=== PATIENT | female | born 1965 | race Two or more races ===

== ENCOUNTER 2017-01-09 09:57 | Day surgery (SDC) | payer OTHER ==
[2017-01-09] MEDS ORDERED: ceFAZolin 2 GM/SWFI 2 GM/20 ML SYR IVP ONE (11:00)
--- NOTE | 2017-01-09 11:33 | CPEKG ---
Heart Rate: 49 RR Interval: 1224 P-R Interval: 184 QRSD Interval: 86 QT Interval: 488 QTC Interval: 441 P [place]: -11 QRS [place]: -11 T Wave [place]: 11 EKG Severity - OTHERWISE NORMAL ECG - EKG Impression: SINUS BRADYCARDIA Electronically Signed By: Bertin Arango 09-Jan-2017 15:39:56
[2017-01-09] MEDS ORDERED: LR 1,000 ML IV ONE (11:37)
[2017-01-09] MEDS ORDERED: LIDOCAINE 1% 2 ML INJ ID PRN (11:37)
--- NOTE | 2017-01-09 11:57 | PDHPUP ---
History & Physical Update H&P update statement: This history and physical update is based on an assessment of the patient which was completed after admission or registration (within 24 hours), but prior to the surgery/procedure.
[2017-01-09] MEDS ORDERED: BUPIVACAINE 0.5% 30 ML SDV ONE (12:05)
[2017-01-09] MEDS ORDERED: MIDAZOLAM 2 MG/2 ML VIAL IVP ONE (12:11)
--- NOTE | 2017-01-09 12:12 | PDANEPAE ---
ANE Past Medical History - Cardiovascular History Hx Hypertension: No Hx Arrhythmias: No Hx Chest Pain: No Hx Coronary Artery / Peripheral Vascular Disease: No Hx CHF / Valvular Disease: No Hx Palpitations: No Cardiovascular History Comment: PE, PFO, EDEMA TO LEGS - Pulmonary History Hx COPD: No Hx Asthma/Reactive Airway Disease: Yes Hx Recent Upper Respiratory Infection: No Hx Oxygen in Use at Home: No Hx Sleep Apnea: No Sleep Apnea Screening Result - Last Documented: Positive Pulmonary History Comment: BRONCHATELECTISIS - Neurologic History Hx Cerebrovascular Accident: No Hx Seizures: No Hx Dementia: No - Endocrine History Hx Diabetes: Yes - Renal History Hx Renal Disorders: Yes - Liver History Hx Hepatic Disorders: No - Neurological & Psychiatric Hx Hx Neurological and Psychiatric Disorders: Yes Neurological / Psychiatric History Comment: TREMERS - Cancer History Hx Cancer: No - Congenital Disorder History Hx Congenital Disorders: No - GI History Hx Gastrointestinal Disorders: Yes Gastrointestinal History Comment: SEVERE REFLUX, GERD,IBS - Other Health History Other Health History: BRUISES EASILY - Chronic Pain History Chronic Pain: Yes (RA,JOINTS, BACK NECK) - Surgical History Prior Surgeries: GASTRIC BYPASS 2016,FUKERSON PROCEDURE LEFT KNEE ANE Review of Systems Review of Systems: - Exercise capacity METS (RN): 3 METS ANE Patient History - Allergies Allergies/Adverse Reactions: sulfasalazine Allergy (Intermediate, Verified 01/08/17 13:35) Hives - Home Medications Home Medications: Abilify 01/08/17 [Last Taken Unknown] Ambien 01/08/17 [Last Taken Unknown] Atorvastatin Calcium 01/08/17 [Last Taken 01/08/17] Dexilant 01/08/17 [Last Taken Unknown] Lamictal 01/08/17 [Last Taken 01/08/17] Lasix 01/08/17 [Last Taken Unknown] Lexapro 01/08/17 [Last Taken 01/08/17] Lyrica 01/08/17 [Last Taken 01/08/17] Nexium 01/08/17 [Last Taken 01/08/17] Oxycodone HCl 01/08/17 [Last Taken 01/08/17] Plaquenil 200 mg (*) 01/08/17 [Last Taken 01/08/17] Potassium 01/08/17 [Last Taken Unknown] Singulair 01/08/17 [Last Taken Unknown] Soma 01/08/17 [Last Taken Unknown] Xarelto 01/08/17 [Last Taken Unknown] Xopenex 01/08/17 [Last Taken Unknown] Zantac 01/08/17 [Last Taken 01/08/17] morphINE SR 01/08/17 [Last Taken Unknown] - NPO status NPO Since - Liquids (Date): 01/08/17 NPO Since - Liquids (Time): 19:00 NPO Since - Solids (Date): 01/08/17 NPO Since - Solids (Time): 19:00 - Smoking Hx Smoking Status: Former smoker - Family Anes Hx Family Hx Anesthesia Complications: NONE ANE Labs/Vital Signs - Vital Signs Blood Pressure: 122/74 Heart Rate: 49 Respiratory Rate: 14 O2 Sat (%): 95 Height: 154.94 cm Weight: 88.451 kg ANE Physical Exam - Airway Neck exam: increased neck circumference, short neck Mallampati Score: Class 3 Mouth exam: normal dental/mouth exam - Pulmonary Pulmonary: no respiratory distress, no rales or rhonchi - Cardiovascular Cardiovascular: regular rate and rhythym - ASA Status ASA Status: III (Obesity with sleep apnea)
[2017-01-09] MEDS ORDERED: MIDAZOLAM 2 MG/2 ML VIAL ONE ×2 (12:13→12:22)
[2017-01-09] MEDS ORDERED: PROPOFOL/EMULSION 500 MG/50 ML BOTTLE IV ONE (12:23)
[2017-01-09] MEDS ORDERED: NALOXONE HCL 0.4 MG/ML INJ IVP PRN (13:26)
[2017-01-09] MEDS ORDERED: KETOROLAC 15 MG/1 ML SDV IVP ONE (13:46)
[2017-01-09] MEDS ORDERED: ONDANSETRON 4 MG/2 ML VIAL ONE (14:12)
[2017-01-09] MEDS ORDERED: DEXAMETHASONE 4 MG/ML VIAL ONE (14:12)
[2017-01-09] MEDS ORDERED: RANITIDINE 50 MG/2 ML VIAL ONE (14:12)
[2017-01-09] MEDS ORDERED: KETOROLAC 15 MG/1 ML SDV ONE (14:26)
--- NOTE | 2017-01-09 14:28 | POSTOPPROG ---
Post Op Note Date of Operation: 01/09/17 Surgeon: Moose Haley Adult [employer] Education Instructor: Andrei Anesthesiologist: Jamarcus Anesthesia: GET(General Endotracheal) Pre-op Diagnosis: R h toes, metatarsalgia Post-op Diagnosis: same Indication: above Procedure: 2,4,5 h toe, sury, 2nd smo Inf/Abcess present in the surg proc area at time of surgery?: No EBL: 50-100
[2017-01-09 14:41] VITALS: PULSE 51
[2017-01-09 15:04] VITALS: RESP 17
[2017-01-09 15:24] VITALS: BP 128/82; O2SAT 94
[2017-01-09 15:41] VITALS: TEMP 97.5
--- NOTE | 2017-01-09 20:46 | GOP ---
[f rep st] OPERATIVE REPORT DATE OF OPERATION: 01/09/2017 SURGEON: Moose Haley MD VENDING MACHINE REFILLER: Jose Forbes SA. ANESTHESIA: General with a popliteal block. PREOPERATIVE DIAGNOSIS: 1. Right 2, 4, and 5 hammertoes. 2. Right metatarsalgia. POSTOPERATIVE DIAGNOSIS: 1. Right 2, 4, and 5 hammertoes. 2. Right metatarsalgia. PROCEDURE PERFORMED: 1. Right 2, 4 and 5 hammertoe correction. 2. Right 2nd metatarsal shortening osteotomy. 3. Right gastroc recession (Nahum procedure). FINDINGS: SPECIMENS: None. ESTIMATED BLOOD LOSS: 5 mL. INDICATIONS: This is a 51-year-old female with a prior hammertoe surgery they deformed. She is havi ng significant metatarsalgia pain and callus formation. She had failed nonoperative treatment and el ected to proceed with surgery. We discussed risks of recurrence, continued pain, further contracture , nerve injury, wound complications, blood clot and PE, especially given her prior history of blood c lot and PE, and she elected to proceed. Informed consent was obtained, all questions were answered. She was marked preoperatively. DESCRIPTION OF PROCEDURE: Patient taken to the operative suite. Popliteal block was administered pe r Anesthesia. She was sterilely prepped and draped in normal fashion. Time-out was performed verify ing site, side, location and agreed upon by all members of the team. Incision was made in the medial leg, dissected through the fat, and I incised the fascia. Protected the fascia and the sural nerve and isolated the myotendinous junction of the gastroc and released the superficial portion of this with the foot being pushed in dorsiflexion obtaining release of the jhoan grant contracture. This wound was closed with 2-0 Vicryl, 3-0 Monocryl, and Dermabond. The hammertoes were exposed over the PIP joints, and these were exposed sharply. The previous incisi on was made to expose the 2nd metatarsal joint and this was released with a McGlamry. Performed a sh ortening osteotomy with an oblique cut of the 2nd metatarsal. Pinned this, checked this fluoroscopic ally, and then held this in place with 2 screws. I resected her hammertoes with a sagittal saw, and then drilled holes in these for the Trim-It pins and completed our PIP arthrodesis of the 2, 4 and 5 hammertoes. With the Trim-Its, these were stable and sat well without any assistance. She was irrig ated. Wound was closed with 3-0 Vicryl, 4-0 and 3-0 nylon. Tourniquet was released. Her toes did p ink up. She was placed in a splint and sterile dressing. Taken to PACU in stable condition. IMPLANTS: Two Arthrex snap-off screws and Trim-It pins. COMPLICATIONS: None. DRAINS: None. CONDITION: Stable. /[id number]/MODL
== END 2017-01-09 15:40 | disposition home or self-care (01) ==
LOC: FSGY 09:57
PROVIDERS: ATTEND Orthopaedic Surgery
PROC: 0QBQ0ZZ Excision of Right Toe Phalanx, Open Approach (ICD-10-PCS; principal; 2017-01-09 11:45)
PROC: 0KNS0ZZ Release Right Lower Leg Muscle, Open Approach (ICD-10-PCS; principal; 2017-01-09 11:45)
DX: M20.41 Other hammer toe(s) (acquired), right foot (principal); M62.461 Contracture of muscle, right lower leg; M79.671 Pain in right foot; M21.42 Flat foot [pes planus] (acquired), left foot; K58.2 Mixed irritable bowel syndrome; E11.9 Type 2 diabetes mellitus without complications; K21.9 Gastro-esophageal reflux disease without esophagitis; G47.33 Obstructive sleep apnea (adult) (pediatric); E66.9 Obesity, unspecified; Z68.36 Body mass index [BMI] 36.0-36.9, adult; Z86.711 Personal history of pulmonary embolism; Z87.891 Personal history of nicotine dependence
CPT/HCPCS: C1713; J0690; J1100; J1885; J2250; J2405; J2704; J2780